=== PATIENT | male | born 1985 | race Caucasian/White ===

== ENCOUNTER 2018-10-25 18:53 | Emergency (ER) | payer OTHER ==
[~2018-10-25] VITALS: Ht 170.2 cm; Wt 69.4 kg
[2018-10-25 18:58] VITALS: BP 150/90
--- NOTE | 2018-10-25 19:25 | NUR ---
ASSESSMENT MADE. PA AT BEDSIDE.
--- NOTE | 2018-10-25 20:08 | NUR ---
DC EDUCATION PROVIDED, PT DEMONSTRATES UNDERSTANDING. PT AMBUALTED STEADILY TO DC WITH RN
== END 2018-10-25 20:13 | disposition home or self-care (01) ==
LOC: ED 20:11
DX: K02.9 Dental caries, unspecified (principal); K04.7 Periapical abscess without sinus; Z87.891 Personal history of nicotine dependence
CPT/HCPCS: 99283